=== PATIENT | male | born 1995 | race Caucasian/White ===

== ENCOUNTER 2016-07-12 13:47 | Emergency (ER) | payer MEDICAID ==
[~2016-07-12] VITALS: Wt 71.0 kg
[~2016-07-12 13:47] MED LIST: NO MEDS
--- NOTE | 2016-07-12 16:44 | RADRPT ---
PROCEDURE: XR Hand. CLINICAL INDICATION: Right hand pain. TECHNIQUE: Three views. Frontal, lateral, and oblique images of the right hand were obtained. COMPARISON: No prior studies are available for comparison. FINDINGS: There is no fracture or dislocation. The soft tissues are normal. Articular surfaces are intact. There is no lytic or blastic lesion. There is no radiopaque foreign body. IMPRESSION: 1. Unremarkable images of the right hand. RPTAT: QQ .Salvador Aragon MD, MD Date Time Electronically viewed and signed by .Salvador Aragon MD, MD on 07/12/2016 16:44 .R/
[2016-07-12] MEDS ORDERED: IBUP-1542 PO (16:52)
--- NOTE | 2016-07-12 17:33 | ERD ---
ER Documentation Chief Complaint Date/Time DATE: 07/12/16 TIME: 17:30 Chief Complaint R HAND PAIN AFTER SOCCER INJURY HPI Patient is a 21 year old male who presents to the ED with R hand pain which started yesterday while playing soccer. Patient states an opponent slammed into him, causing him to bend his right hand backwards. Patient states pain was initially controlled, however it is getting worse. Patient reports increased swelling to affected extremity. Patient denies previous fractures to affected extremity. Patient denies wrist, elbow or forearm pain. Patient denies fevers or chills. Patient is right hand dominant. ROS All systems reviewed and are negative except as per history of present illness. Medications Home Meds Active Scripts Ibuprofen* (Motrin*) 600 Mg Tab, 600 MG PO Q6, #30 TAB Prov:KARIN GONZALEZ PA-C 07/12/16 Reported Medications [No Meds] No Conflict Check 09/01/10 Allergies Allergies: Coded Allergies: No Known Drug Allergies (Verified Allergy, Mild, 08/21/13) PMhx/Soc History of Surgery: No Anesthesia Reaction: No Hx Neurological Disorder: No Hx Respiratory Disorders: No Hx Cardiac Disorders: No Hx Psychiatric Problems: No Hx Miscellaneous Medical Probl: No Hx Alcohol Use: No Hx Substance Use: No Hx Tobacco Use: No Physical Exam Vitals Vital Signs Date Time Temp Pulse Resp B/P Pulse Ox O2 Delivery O2 Flow Rate FiO2 07/12/16 17:35 98.3 88 18 120/70 99 Room Air 07/12/16 13:54 98.0 78 18 123/71 99 Physical Exam GENERAL: Well-developed, well-nourished male. Appears in no acute distress. HEAD: Normocephalic, atraumatic. EYES: Pupils are equally reactive bilaterally. EOMs grossly intact. No conjunctival erythema. ENT: Moist mucous membranes. No uvula deviation. No kissing tonsils. NECK: Supple. No lymphadenopathy or thyromegaly. No meningismus. LUNG: Clear to auscultation bilaterally. No rhonchi, wheezing, rales or coarse breath sounds. HEART: Regular rate and rhythm. No murmurs, rubs or gallops. Extremities: Equal pulses bilaterally. No peripheral clubbing, cyanosis or edema. No unilateral leg swelling. NEUROLOGIC: Alert and oriented. Moving all four extremities. 5/5 strength in all extremities. Normal speech. Steady gait. SKIN: Normal color. Warm and dry. No rashes or lesions. RIGHT HAND: No obvious deformity. +Ecchymosis and swelling to 4th and 5th digits. Superficial abrasion noted to PIP of 5th digit.Full ROM of all fingers, wrist and elbow. Able to pronate and supinate without any pain. Non-tender to palpation of elbow, forearm. Tender to palpation of palm, 4th and 5th digits. Sensation intact to light touch. Neurovascularly intact. (Able to give thumbs up , make an ok sign, cross digits 2 and 3, thumb to pinky opposition. 2+ RP.) No snuffbox tenderness. Procedures/MDM ED COURSE: The patient was stable throughout ED course. I kept the patient and/or family informed of laboratory and diagnostic imaging results throughout the ED course. DIAGNOSTIC IMAGING: Read by radiologist. DIAGNOSTIC IMAGING REPORT Patient: ARIELLE VILCHIS : 1995 Age: 21 Sex: M MR #: [id number] DOS: 07/12/16 1610 Ordering MD: KARIN GONZALEZ PA-C Location: [facility] Room/Bed: PROCEDURE: XR Hand. CLINICAL INDICATION: Right hand pain. TECHNIQUE: Three views. Frontal, lateral, and oblique images of the right hand were obtained. COMPARISON: No prior studies are available for comparison. FINDINGS: There is no fracture or dislocation. The soft tissues are normal. Articular surfaces are intact. There is no lytic or blastic lesion. There is no radiopaque foreign body. IMPRESSION: 1. Unremarkable images of the right hand. RPTAT: QQ .Salvador Aragon MD, Date Time Electronically viewed and signed by .Salvador Aragon MD, on 07/12/2016 16:44 .R/ CC: KARIN GONZALEZ PA-C PROCEDURES: SPLINT APPLICATION: The patient was verbally consented at bedside prior to splint application. Patient was explained the risks, benefits and alternatives to this procedure. The patient was neurovascularly intact prior to and status post application of the splint. The patient tolerated the procedure well with no complications. Splint type: Velcro hand splint Extremity: right hand Indication: hand sprai MEDICAL DECISION MAKING: This is a 21 year old male who presents with R hand pain s/p trip and fall injury while playing soccer yesterday. Vital signs were reviewed. Patient was afebrile. XR R hand was unremarkable. Patient was placed in velcro hand splint for comfort measures. Patient's superficial abrasion was also cleansed and bandaged. Given these findings, the patients presentation is most consistent with hand sprain. .I have a much lower clinical concern for dislocation, carpal fracture, scaphoid fracture, metacarpal fracture, phalanx fracture, Boxers fracture, boutonnieres deformity, mallet finger, trigger finger, rheumatoid arthritis, osteoarthritis, fingertip laceration, osteomyelitis or compartment syndrome. Unable to rule out any ligament or tendon injuries at this time. Low suspicion for open fracture given no fractures noted on xray. PRESCRIPTIONS: Ibuprofen DISCHARGE: At this time, patient is stable for discharge and outpatient management. Patient provided with a copy of all imaging studies obtained today. RICE therapy and ROM exercises were advised to avoid stiffness. I have instructed the patient to follow-up with his/her primary care physician in 1-2 days. I have discussed with the patient the possibility of needing to see an teaching specialists for further workup and imaging if the pain persists. I have instructed the patient to promptly return to the ER for any new or worsening symptoms including increased pain, swelling, redness, warmth or fever. The patient and/or family expressed understanding of and agreement with this plan. All questions were answered. Home care instructions were provided. Departure Diagnosis: Primary Impression: Injury of hand Encounter type: initial encounter Laterality: right Qualified Code: S69.91XA - Injury of hand, right, initial encounter Condition: Stable Patient Instructions: Sprain Hand Referrals: COMM[facility] CLIN[facility] YOU HAVE RECEIVED A MEDICAL SCREENING EXAM AND THE RESULTS INDICATE THAT YOU DO NOT HAVE A CONDITION THAT REQUIRES URGENT TREATMENT IN THE EMERGENCY DEPARTMENT. FURTHER EVALUATION AND TREATMENT OF YOUR CONDITION CAN WAIT UNTIL YOU ARE SEEN IN YOUR DOCTORS OFFICE WITHIN THE NEXT 1-2 DAYS. IT IS YOUR RESPONSIBILITY TO MAKE AN APPOINTMENT FOR FOLOW-UP CARE. IF YOU HAVE A PRIMARY DOCTOR --you should call your primary doctor and schedule an appointment IF YOU DO NOT HAVE A PRIMARY DOCTOR YOU CAN CALL OUR PHYSICIAN REFERRAL HOTLINE AT IF YOU CAN NOT AFFORD TO SEE A PHYSICIAN YOU CAN CHOSE FROM THE FOLLOWING [facility] [address] [facility] [address] [facility] [address] [facility] [address] [facility] [address] [facility]. [facility] [address] [facility]. [facility] YOU HAVE RECEIVED A MEDICAL SCREENING EXAM AND THE RESULTS INDICATE THAT YOU DO NOT HAVE A CONDITION THAT REQUIRES URGENT TREATMENT IN THE EMERGENCY DEPARTMENT. FURTHER EVALUATION AND TREATMENT OF YOUR CONDITION CAN WAIT UNTIL YOU ARE SEEN IN YOUR DOCTORS OFFICE WITHIN THE NEXT 1-2 DAYS. IT IS YOUR RESPONSIBILITY TO MAKE AN APPOINTMENT FOR FOLOW-UP CARE. IF YOU HAVE A PRIMARY DOCTOR --you should call your primary doctor and schedule and appointment IF YOU DO NOT HAVE A PRIMARY DOCTOR YOU CAN CALL OUR PHYSICIAN REFERRAL HOTLINE AT . IF YOU CAN NOT AFFORD TO SEE A PHYSICIAN YOU CAN CHOSE FROM THE FOLLOWING [facility]: [facility] [address] [place] [address] [facility] [address] [place] [address] [facility] [address] [place] [address] [facility] Hours: Mon-Fri 9:00 AM - 5:00 PM Additional Instructions: Call your primary care doctor TOMORROW for an appointment during the next 1-2 days.See the doctor sooner or return here if your condition worsens before your appointment time. Unable to rule out any ligament or tendon injuries at this time. Patient advised to follow-up with an teaching specialists and/or obtain MRI imaging pain persists. KARIN GONZALEZ PA-C July 12, 2016 17:33
[2016-07-12 17:35] VITALS: BP 120/70; PULSE 88; RESP 18; TEMP 98.3
== END 2016-07-12 17:42 | disposition home or self-care (01) ==
LOC: FTE 13:47
DX: S69.91XA Unspecified injury of right wrist, hand and finger(s), initial encounter (principal); X50.1XXA Overexertion from prolonged static or awkward postures, initial encounter; Y92.9 Unspecified place or not applicable
CPT/HCPCS: 29125; 73130; Z7502